=== PATIENT | female | born 1985 | race Caucasian/White ===

== ENCOUNTER 2019-07-19 21:07 | Emergency (ER) | payer SELFPAY ==
[2019-07-19 21:24] VITALS: BP 118/75; PULSE 72
--- NOTE | 2019-07-19 22:28 | EDM.PDOC ---
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 About 8:00 this evening the patient went to the bathroom passed some tissue that she thought was a fetus. Pregnancies been uncomplicated thus far. She has not been feeling ill or sick and had no other complaints. Patient still smokes. No prior miscarriages in the past. She is uncertain of her blood type. Patient has established with Dr. Ogden as her OB. - Related Data Allergies Allergy/AdvReac Type Severity Reaction Status Date / Time No Known Allergies Allergy Verified 07/19/19 21:18 Home Meds: Home Meds . [No Known Home Meds] 07/19/19 [History] Past Medical History - Past Health History Medical/Surgical History: Denies Medical/Surgical History - Infectious Disease History Infectious Disease History: Reports: Chicken Pox Social & Family History - Family History Family Medical History: Noncontributory - Tobacco Use Smoking Status *Q: Unknown Ever Smoked ED ROS GENERAL - Review of Systems Review Of Systems: See Below Constitutional: Reports: No Symptoms Respiratory: Reports: No Symptoms Cardiovascular: Reports: No Symptoms Endocrine: Reports: No Symptoms GI/Abdominal: Denies: Constipation, Diarrhea, Nausea, Vomiting : Reports: No Symptoms Musculoskeletal: Reports: No Symptoms Skin: Reports: No Symptoms Neurological: Reports: No Symptoms ED EXAM - Physical Exam Exam: See Below Exam Limited By: No Limitations General Appearance: Alert, No Apparent Distress Head: Atraumatic, Normocephalic Neck: Normal Inspection, Supple, Non-Tender, Full Range of Motion. No: Lymphadenopathy (L), Lymphadenopathy (R) Respiratory/Chest: No Respiratory Distress, Lungs Clear, Normal Breath Sounds Cardiovascular: Regular Rate, Rhythm, No Edema, No Murmur GI/Abdominal Exam: Normal Bowel Sounds, Soft, Non-Tender (Female) Exam: Normal Bimanual Exam, Normal External Exam, Vaginal Bleeding ( Small amount), Other (Small amount of blood coming from the cervical os with small amounts of clot no tissue seen). No: Adnexal Tenderness, Enlarged Uterus , Products of Conception Back Exam: Normal Inspection. No: CVA Tenderness (L), CVA Tenderness (R) Extremities: Normal Inspection, No Pedal Edema Skin Exam: Warm, Dry, Intact Course - Vital Signs Last Recorded V/S: Last Vital Signs Temp 36.7 C 07/19/19 21:21 Pulse 72 07/19/19 21:21 Resp 18 07/19/19 21:21 BP 118/75 07/19/19 21:21 Pulse Ox 100 07/19/19 21:21 - Orders/Labs/Meds Orders: Active Orders 24 hr Category Date Time Status PATIENT RETYPE [BBK] Routine Lab 07/19/19 23:20 Ordered Labs: Laboratory Tests 07/19/19 07/19/19 07/19/19 Range/Units 22:30 22:40 22:40 WBC 7.32 (3.98-10.04) K/mm3 RBC 4.08 (3.98-5.22) M/mm3 Hgb 12.2 (11.2-15.7) gm/L Hct 36.8 (34.1-44.9) % MCV 90.2 (79.4-94.8) fl MCH 29.9 (25.6-32.2) pg MCHC 33.2 (32.2-35.5) g/dl RDW Std Deviation 40.6 (36.4-46.3) fL Plt Count 268 (182-369) K/mm3 MPV 9.6 (9.4-12.3) fl Neutrophils % (Manual) 63 H (40-60) % Band Neutrophils % 0 (0-10) % Lymphocytes % (Manual) 29 (20-40) % Atypical Lymphs % 0 % Monocytes % (Manual) 7 (2-10) % Eosinophils % (Manual) 1 (0.7-5.8) % Basophils % (Manual) 0 L (0.1-1.2) Platelet Estimate Adequate Plt Morphology Comment Normal RBC Morph Comment Normal Sodium 141 (136-145) mEq/L Potassium 3.8 (3.5-5.1) mEq/L Chloride 107 (98-107) mEq/L Carbon Dioxide 27 (21-32) mEq/L Anion Gap 10.8 (5-15) BUN 11 (7-18) mg/dL Creatinine 0.8 (0.55-1.02) mg/dL Est Cr Clr Drug Dosing 111.79 mL/min Estimated GFR (MDRD) > 60 (>60) mL/min BUN/Creatinine Ratio 13.8 L (14-18) Glucose 86 (74-106) mg/dL Calcium 9.1 (8.5-10.1) mg/dL Total Bilirubin 0.3 (0.2-1.0) mg/dL AST 17 (15-37) U/L ALT 17 (14-59) U/L Alkaline Phosphatase 47 (46-116) U/L Total Protein 6.7 (6.4-8.2) g/dl Albumin 3.4 (3.4-5.0) g/dl Globulin 3.3 gm/dL Albumin/Globulin Ratio 1.0 (1-2) HCG, Quant mIU/mL Urine Color Yellow (Yellow) Urine Appearance Clear (Clear) Urine pH 7.5 (5.0-8.0) Ur Specific [place] 1.020 (1.005-1.030) Urine Protein Negative (Negative) Urine Glucose (UA) Negative (Negative) Urine Ketones Negative (Negative) Urine Occult Blood 3+ H (Negative) Urine Nitrite Negative (Negative) Urine Bilirubin Negative (Negative) Urine Urobilinogen 1.0 (0.2-1.0) Ur Leukocyte Esterase Negative (Negative) Urine RBC 5-10 H (0-5) /hpf Urine WBC Not seen (0-5) /hpf Ur Epithelial Cells 0-5 (0-5) /hpf Amorphous Sediment Many H (NOT SEEN) /hpf Urine Bacteria Rare (FEW) /hpf Urine Mucus Rare (FEW) /hpf Blood Type Gel Antibody Screen 07/19/19 07/19/19 Range/Units 22:40 22:40 WBC (3.98-10.04) K/mm3 RBC (3.98-5.22) M/mm3 Hgb (11.2-15.7) gm/L Hct (34.1-44.9) % MCV (79.4-94.8) fl MCH (25.6-32.2) pg MCHC (32.2-35.5) g/dl RDW Std Deviation (36.4-46.3) fL Plt Count (182-369) K/mm3 MPV (9.4-12.3) fl Neutrophils % (Manual) (40-60) % Band Neutrophils % (0-10) % Lymphocytes % (Manual) (20-40) % Atypical Lymphs % % Monocytes % (Manual) (2-10) % Eosinophils % (Manual) (0.7-5.8) % Basophils % (Manual) (0.1-1.2) Platelet Estimate Plt Morphology Comment RBC Morph Comment Sodium (136-145) mEq/L Potassium (3.5-5.1) mEq/L Chloride (98-107) mEq/L Carbon Dioxide (21-32) mEq/L Anion Gap (5-15) BUN (7-18) mg/dL Creatinine (0.55-1.02) mg/dL Est Cr Clr Drug Dosing mL/min Estimated GFR (MDRD) (>60) mL/min BUN/Creatinine Ratio (14-18) Glucose (74-106) mg/dL Calcium (8.5-10.1) mg/dL Total Bilirubin (0.2-1.0) mg/dL AST (15-37) U/L ALT (14-59) U/L Alkaline Phosphatase (46-116) U/L Total Protein (6.4-8.2) g/dl Albumin (3.4-5.0) g/dl Globulin gm/dL Albumin/Globulin Ratio (1-2) HCG, Quant 2011.0 mIU/mL Urine Color (Yellow) Urine Appearance (Clear) Urine pH (5.0-8.0) Ur Specific [place] (1.005-1.030) Urine Protein (Negative) Urine Glucose (UA) (Negative) Urine Ketones (Negative) Urine Occult Blood (Negative) Urine Nitrite (Negative) Urine Bilirubin (Negative) Urine Urobilinogen (0.2-1.0) Ur Leukocyte Esterase (Negative) Urine RBC (0-5) /hpf Urine WBC (0-5) /hpf Ur Epithelial Cells (0-5) /hpf Amorphous Sediment (NOT SEEN) /hpf Urine Bacteria (FEW) /hpf Urine Mucus (FEW) /hpf Blood Type A POSITIVE Gel Antibody Screen Negative - Re-Assessments/Exams Free Text/Narrative Re-Assessment/Exam: 07/20/19 00:54 Patient was observed for some time in the emergency room no heavy bleeding or cramping occurred. No passage of any more tissue. Labs are obtained her blood type is a positive quantitative hCG was 2011.0 very low for 15 weeks Departure - Departure Time of Disposition: 00:55 Disposition: Home, Self-Care 01 Clinical Impression: Incomplete - Discharge Information Referrals: Stephenie Ogden MD [Primary Care Provider] - Forms: ED Department Discharge Additional Instructions: Return to the emergency room with any questions problems or worsening symptoms. Return if bleeding gets to saturating more than 2 pads an hour for 4 straight hours. Follow-up with Dr. Jarquin as scheduled on . - My Orders Last 24 Hours: My Active Orders 07/19/19 23:20 PATIENT RETYPE [BBK] Routine - Assessment/Plan Last 24 Hours: My Active Orders 07/19/19 23:20 PATIENT RETYPE [BBK] Routine
== END 2019-07-20 01:03 | disposition home or self-care (01) ==
LOC: JD.ED 21:07
DX: O03.4 Incomplete spontaneous abortion without complication (principal)
CPT/HCPCS: 36415; 80053; 81001; 84702; 85007; 85027; 86850; 86900; 86901; 99282; 99284

== ENCOUNTER 2019-09-03 22:03 | Observation (INO) | payer SELFPAY ==
--- NOTE | 2019-09-03 22:40 | EDM.PDOC ---
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 She had a miscarriage on July 20. She states of the ultrasound after work did not show any acute problems or retained placental products. However since that time she is been bleeding on and off. About every 3-4 day she'll have some very heavy bleeding and clots. Over the last week and a half it seems to be happening every other day. She is called her OB doctor who told her that she thought she was getting weaker pales that she needs to be evaluated so she comes to the ER. Apparently her boyfriend fela told her that she looked pale and so that was why she came. She denies being particularly weak or fatigued and she's been holding down her job. She has been eating and drinking okay. She denies any dizziness when she stands up she denies any fainting spells. She denies any abdominal pain with the vaginal bleeding. No fever no chills no cough no congestion. - Related Data Allergies Allergy/AdvReac Type Severity Reaction Status Date / Time No Known Allergies Allergy Verified 09/03/19 22:13 Home Meds: Home Meds . 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 - Infectious Disease History Infectious Disease History: Reports: Chicken Pox Social & Family History - Family History Family Medical History: Noncontributory - Tobacco Use Smoking Status *Q: Current Every Day Smoker Years of Tobacco use: 20 Packs/Tins Daily: 0.5 - Caffeine Use Caffeine Use: Reports: Soda - Recreational Drug Use Recreational Drug Use: Yes Recreational Drug Type: Reports: Marijuana/Hashish Recreational Drug Use Frequency: Weekly ED ROS GENERAL - Review of Systems Review Of Systems: See Below Constitutional: Denies: Fever, Chills, Malaise, Weakness, Fatigue HEENT: Reports: No Symptoms Respiratory: Reports: No Symptoms Cardiovascular: Reports: No Symptoms Endocrine: Reports: No Symptoms GI/Abdominal: Reports: No Symptoms : Reports: Other (Vaginal bleeding) Musculoskeletal: Reports: No Symptoms Skin: Reports: Pallor Neurological: Reports: No Symptoms Psychiatric: Reports: No Symptoms Hematologic/Lymphatic: Reports: No Symptoms ED EXAM, GENERAL - Physical Exam Exam: See Below Exam Limited By: No Limitations General Appearance: Alert, WD/WN, No Apparent Distress Eye Exam: Bilateral Eye: Normal Inspection, Other (She has pale conjunctiva noted) Ears: Normal External Exam Nose: Normal Inspection Throat/Mouth: Normal Inspection, Normal Lips, Normal Voice, No Airway Compromise Head: Normocephalic Neck: Supple Respiratory/Chest: No Respiratory Distress, Lungs Clear, Normal Breath Sounds Cardiovascular: Regular Rate, Rhythm, No Murmur. No: Tachycardia GI/Abdominal: Soft, Non-Tender Back Exam: Full Range of Motion Extremities: Normal Inspection, Normal Range of Motion Neurological: Alert, Oriented Psychiatric: Normal Affect, Normal Mood Skin Exam: Warm, Dry, Pallor, Other (Overall she does appear to be pale and the nailbeds and her lips and her conjunctiva of her eyes) Course - Vital Signs Last Recorded V/S: Last Vital Signs Temp 97.2 F 09/03/19 22:10 Pulse 92 09/03/19 22:10 Resp 18 09/03/19 22:10 BP 117/83 09/03/19 22:10 Pulse Ox 100 09/03/19 22:10 - Orders/Labs/Meds Orders: Active Orders 24 hr Category Date Time Status Pelvis Non OB Comp [US] Stat Exams 09/04/19 12:00 Taken Ibuprofen [Motrin] Med 09/04/19 02:29 Once 600 mg PO ONETIME ONE miSOPROStol [Cytotec] Med 09/04/19 02:29 Once 400 mcg PO ONETIME ONE Medication Orders Misoprostol (Cytotec) 400 mcg PO ONETIME ONE Stop: 09/04/19 02:30 Labs: Laboratory Tests 09/03/19 09/03/19 Range/Units 22:43 22:43 WBC 9.56 (3.98-10.04) K/mm3 RBC 2.52 L (3.98-5.22) M/mm3 Hgb 7.3 L* D (11.2-15.7) gm/dl Hct 22.9 L (34.1-44.9) % MCV 90.9 (79.4-94.8) fl MCH 29.0 (25.6-32.2) pg MCHC 31.9 L (32.2-35.5) g/dl RDW Std Deviation 38.2 (36.4-46.3) fL Plt Count 294 (182-369) K/mm3 MPV 8.4 L (9.4-12.3) fl Neut % (Auto) 76.1 H (34.0-71.1) % Lymph % (Auto) 15.3 L (19.3-51.7) % [place] % (Auto) 8.1 (4.7-12.5) % Eos % (Auto) 0.2 L (0.7-5.8) Baso % (Auto) 0.1 (0.1-1.2) % Neut # (Auto) 7.28 H (1.56-6.13) K/mm3 Lymph # (Auto) 1.46 (1.18-3.74) K/mm3 [place] # (Auto) 0.77 H (0.24-0.36) K/mm3 Eos # (Auto) 0.02 L (0.04-0.36) K/mm3 Baso # (Auto) 0.01 (0.01-0.08) K/mm3 Manual Slide Review Abnormal smear Sodium 141 (136-145) mEq/L Potassium 3.5 (3.5-5.1) mEq/L Chloride 107 (98-107) mEq/L Carbon Dioxide 26 (21-32) mEq/L Anion Gap 11.5 (5-15) BUN 8 (7-18) mg/dL Creatinine 0.7 (0.55-1.02) mg/dL Est Cr Clr Drug Dosing 106.41 mL/min Estimated GFR (MDRD) > 60 (>60) mL/min BUN/Creatinine Ratio 11.4 L (14-18) Glucose 113 H (74-106) mg/dL Calcium 8.0 L (8.5-10.1) mg/dL Total Bilirubin 0.2 (0.2-1.0) mg/dL AST 10 L (15-37) U/L ALT 13 L (14-59) U/L Alkaline Phosphatase 47 (46-116) U/L Total Protein 5.5 L (6.4-8.2) g/dl Albumin 2.7 L (3.4-5.0) g/dl Globulin 2.8 gm/dL Albumin/Globulin Ratio 1.0 (1-2) Meds: Medications Generic Name Dose Route Start Last Admin Trade Name Vicenteq PRN Reason Stop Dose Admin Misoprostol 400 mcg 09/04/19 02:29 Cytotec PO 09/04/19 02:30 ONETIME ONE Discontinued Medications Generic Name Dose Route Start Last Admin Trade Name Freq PRN Reason Stop Dose Admin Estrogens Conjugated 1.25 mg 09/04/19 00:02 09/04/19 00:10 Premarin PO 09/04/19 00:03 Not Given ONETIME ONE - Radiology Interpretation Free Text/Narrative:: The ultrasound showed everything was normal except she had small amount of retained products in the uterus - Re-Assessments/Exams Free Text/Narrative Re-Assessment/Exam: 09/03/19 23:[address] Rivera regarding the low hemoglobin from the continual vaginal bleeding. He suggested that we put her on some Premarin 1.25 mg a day for the next 7 days and put her on some iron sulfate 325 mg twice a day. When I talked about the low white count since she is asymptomatic he did not feel at this point that she needed a blood transfusion but hopefully the Premarin and the iron pills will #1 stop the bleeding and number to build up her blood count. If for some reason she starts having dizziness or fainting spells then she will need to have a blood transfusion. We are going to get an ultrasound of her uterus to just to make sure it is still looking normal and there is no retained placental products. 09/04/19 02:[address] Rivera regarding the retained products in the uterus and he instructed me to give her 400 g of Cytotec as well as some ibuprofen and he is going to put her into OB for observation to make sure the products are expelled and if not she might have to have a D&C. He is concerned about her low hemoglobin and doing the Cytotec and then sending her home since it might not be effective. Departure - Departure Time of Disposition: 02:31 Disposition: Admitted As Inpatient 66 Condition: Fair Clinical Impression: Retained products of conception, Severe anemia, Vaginal bleeding, History of miscarriage - Discharge Information *PRESCRIPTION DRUG MONITORING PROGRAM REVIEWED*: Not Applicable *COPY OF PRESCRIPTION DRUG MONITORING REPORT IN PATIENT FORREST: Not Applicable ED Communication - ED Communication Date/Time Date: 09/04/19 Time Called: 02:33 - Discussed Case With (1) Discussed Case With (1): Admitting Provider Person/s Notified (1): Fitz Rivera (He agrees to admit the patient for further evaluation and treatment) - My Orders Last 24 Hours: My Active Orders 09/04/19 02:29 Ibuprofen [Motrin] 600 mg PO ONETIME ONE miSOPROStol [Cytotec] 400 mcg PO ONETIME ONE 09/04/19 12:00 Pelvis Non OB Comp [US] Stat - Assessment/Plan Last 24 Hours: My Active Orders 09/04/19 02:29 Ibuprofen [Motrin] 600 mg PO ONETIME ONE miSOPROStol [Cytotec] 400 mcg PO ONETIME ONE 09/04/19 12:00 Pelvis Non OB Comp [US] Stat
[2019-09-04] MEDS ORDERED: Misoprostol 100 MCG Tab PO ONE (02:29)
[2019-09-04] MEDS ORDERED: Ibuprofen 600 MG Tab PO ONE (02:29)
[2019-09-04] MEDS ORDERED: Sodium Chloride 0.9% 10 ML Syringe FLUSH PRN (03:06)
--- NOTE | 2019-09-04 04:12 | PCM.PREANE ---
Preanesthetic Assessment - Anesthesia/Transfusion/Family Hx Anesthesia History: Prior Anesthesia Without Reaction Family History of Anesthesia Reaction: No Transfusion History: No Prior Transfusion(s) Intubation History: Unknown - Review of Systems General: No Symptoms, Chills Pulmonary: No Symptoms (Smoker: 1/4 pk per day times 15 yrs. Marijuana QOD.) Cardiovascular: No Symptoms Gastrointestinal: No Symptoms (GERD with / no symptoms for one month) Neurological: No Symptoms Other: Reports: None, Easy Bruising - Physical Assessment NPO Status Date: 09/03/19 NPO Status Time: 21:30 Vital Signs: Last Vital Signs Temp 36.5 C 09/04/19 03:28 Pulse 72 09/04/19 03:28 Resp 14 09/04/19 03:28 BP 123/93 H 09/04/19 03:28 Pulse Ox 97 09/04/19 03:28 Height: 1.7 m Weight: 58.967 kg ASA Class: 2E Mental Status: Alert & Oriented x3 Airway Class: Mallampati = 2 Dentition: Reports: Normal Dentition, Caries Thyro-Mental Finger Breadths: 3 Mouth Opening Finger Breadths: 3 ROM/Head Extension: Full Lungs: Clear to Auscultation, Normal Respiratory Effort Cardiovascular: Regular Rate, Regular Rhythm, No Murmurs - Lab Values: Laboratory Last Values WBC 9.56 K/mm3 (3.98-10.04) 09/03/19 22:43 RBC 2.52 M/mm3 (3.98-5.22) L 09/03/19 22:43 Hgb 7.3 gm/dl (11.2-15.7) L* D 09/03/19 22:43 Hct 22.9 % (34.1-44.9) L 09/03/19 22:43 MCV 90.9 fl (79.4-94.8) 09/03/19 22:43 MCH 29.0 pg (25.6-32.2) 09/03/19 22:43 MCHC 31.9 g/dl (32.2-35.5) L 09/03/19 22:43 RDW Std Deviation 38.2 fL (36.4-46.3) 09/03/19 22:43 Plt Count 294 K/mm3 (182-369) 09/03/19 22:43 MPV 8.4 fl (9.4-12.3) L 09/03/19 22:43 Neut % (Auto) 76.1 % (34.0-71.1) H 09/03/19 22:43 Lymph % (Auto) 15.3 % (19.3-51.7) L 09/03/19 22:43 [place] % (Auto) 8.1 % (4.7-12.5) 09/03/19 22:43 Eos % (Auto) 0.2 (0.7-5.8) L 09/03/19 22:43 Baso % (Auto) 0.1 % (0.1-1.2) 09/03/19 22:43 Neut # (Auto) 7.28 K/mm3 (1.56-6.13) H 09/03/19 22:43 Lymph # (Auto) 1.46 K/mm3 (1.18-3.74) 09/03/19 22:43 [place] # (Auto) 0.77 K/mm3 (0.24-0.36) H 09/03/19 22:43 Eos # (Auto) 0.02 K/mm3 (0.04-0.36) L 09/03/19 22:43 Baso # (Auto) 0.01 K/mm3 (0.01-0.08) 09/03/19 22:43 Manual Slide Review Abnormal smear 09/03/19 22:43 Sodium 141 mEq/L (136-145) 09/03/19 22:43 Potassium 3.5 mEq/L (3.5-5.1) 09/03/19 22:43 Chloride 107 mEq/L (98-107) 09/03/19 22:43 Carbon Dioxide 26 mEq/L (21-32) 09/03/19 22:43 Anion Gap 11.5 (5-15) 09/03/19 22:43 BUN 8 mg/dL (7-18) 09/03/19 22:43 Creatinine 0.7 mg/dL (0.55-1.02) 09/03/19 22:43 Est Cr Clr Drug Dosing 106.41 mL/min 09/03/19 22:43 Estimated GFR (MDRD) > 60 mL/min (>60) 09/03/19 22:43 BUN/Creatinine Ratio 11.4 (14-18) L 09/03/19 22:43 Glucose 113 mg/dL (74-106) H 09/03/19 22:43 Calcium 8.0 mg/dL (8.5-10.1) L 09/03/19 22:43 Total Bilirubin 0.2 mg/dL (0.2-1.0) 09/03/19 22:43 AST 10 U/L (15-37) L 09/03/19 22:43 ALT 13 U/L (14-59) L 09/03/19 22:43 Alkaline Phosphatase 47 U/L (46-116) 09/03/19 22:43 Total Protein 5.5 g/dl (6.4-8.2) L 09/03/19 22:43 Albumin 2.7 g/dl (3.4-5.0) L 09/03/19 22:43 Globulin 2.8 gm/dL 09/03/19 22:43 Albumin/Globulin Ratio 1.0 (1-2) 09/03/19 22:43 Above labs reviewed and noted and within acceptable ranges to proceed with D&C if warranted. 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 [No Known Home Meds] 07/19/19 [History] - CURRENT (IN HOUSE) MEDS Current Meds: Current Medications Ibuprofen (Motrin) 600 mg PO Q4HR PRN PRN Reason: Pain Misoprostol (Cytotec) 400 mcg PO BID NATALEE Sodium Chloride (Saline Flush) 10 ml FLUSH ASDIRECTED PRN PRN Reason: Keep Vein Open Discontinued Medications Estrogens Conjugated (Premarin) 1.25 mg PO ONETIME ONE Stop: 09/04/19 00:03 Last Admin: 09/04/19 00:10 Dose: Not Given Ibuprofen (Motrin) 600 mg PO ONETIME ONE Stop: 09/04/19 02:30 Last Admin: 09/04/19 02:40 Dose: 600 mg Misoprostol (Cytotec) 400 mcg PO ONETIME ONE Stop: 09/04/19 02:30 Last Admin: 09/04/19 02:39 Dose: 400 mcg
[2019-09-04] MEDS ORDERED: Sodium Chloride 0.9% 1,000 ML IV SCH (04:30)
[2019-09-04] MEDS ORDERED: Ibuprofen 600 MG Tab PO PRN (06:45)
[2019-09-04] MEDS ORDERED: Misoprostol 200 MCG Tab PO SCH (06:45)
[2019-09-04] MEDS ORDERED: Lactated Ringers 1,000 ML IV ONE (08:27)
--- NOTE | 2019-09-04 08:42 | PCM.LDHP ---
L&D History of Present Illness - General Date of Service: 09/04/19 Admit Problem/Dx: Patient Status Order with Admit Dx/Problem 09/04/19 02:46 Patient Status [ADT] Routine 09/04/19 03:06 Patient Status [ADT] Routine Admission Diagnosis/Problem Admission Diagnosis/Problem Retained products of conception 09/04/19 08:34 Randal a 33-year-old 4 para 3013 white female who was admitted through the emergency room after evaluation for bleeding after miscarriage. She reports that on 07/19/2019 she passed tissue had bleeding and some cramping and was felt to have completely miscarried. Source of Information: Patient History Limitations: Reports: No Limitations - History of Present Illness Introduction:: Is a 33-year-old 4 para 3013 white female who was admitted through the emergency room after evaluation for bleeding after miscarriage. She reports that on 07/19/2019 she passed tissue had bleeding and some cramping and was felt to have completely miscarried. She is evaluated at [facility] with an ultrasound wouldn't after which she was told that the uterus had completely evacuated itself. She however continued to have bleeding. It was intermittent in nature and at times fairly aggressive. She actually came into the emergency room upon recommendation of her boyfriend because of her appearing very pale. In the emergency room patient was evaluated with hemoglobin which was found to be 7.3 with hematocrit of 22.9 and white count of 9.56 and platelets of 294, 000. Her MCV was 90.9. The cuff is metabolic profile was relatively unremarkable to exception of decreased AST, calcium, BUN/creatinine ratio. Total protein was also low. The patient underwent ultrasound and the ultrasound showed a 14 mm thickening into the endometrial cavity most probably consistent with retained products of conception. Is a left ovarian cyst of 3.3 cm but benign in appearance. The ultrasound otherwise was unremarkable. Her initial hospital course was that of observation with Cytotec 400 g being given oral to facilitate passage of the retained products. She did pass some clots but did not pass any form tissue. Repeat ultrasound showed essentially unchanged status. Patient is offered a second dose of Cytotec or the option of dilation suction curettage. She at this time is given the risks, benefits, limitations and follow-up of suction curettage versus Cytotec and wishes to proceed with the dilation and suction curettage. Consent is signed. 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 She had 3 vaginal deliveries 1 son and 2 daughters all older in the 15-8 year range. All were vaginal deliveries in the 7 pound range. She is sexually active. No control. Patient has no plans to achieve conception at this point. She is considering Mirena IUD. She denied any STI's. Allergies: None Medications: None Past medical history: 1. 3 2. Spontaneous miscarriage 1 July 19, 2019 Past surgical history: 1. [place] teeth extraction 2. Left knee surgery involving her knee cap Family history: Mother and father alive and in generally good health. She has 2 younger brothers. She had one brother from cocaine overdose. Grandparents are all . Grandfather is the cause of unknown. One grandmother with dementia and stroke. The other grandmother with some type of bone cancer possibly originating in the lungs. No anesthesia, bleeding, blood clotting problems noted in the family. No problems also reported. Social history: Patient is single. She does not use any significant muscle L call. She does smoke one third pack cigarettes per day. She uses occasional marijuana. Review of systems: In general patient has no complaints. Main complaint is that her boyfriend feels she appeared pale. She is not having any significant anemia symptoms at this time. Skin: Negative Lungs: No infectious symptoms or shortness of breath Cardiovascular: No chest pain or exercise intolerance Breasts: No lumps, changes in size, pain, dimpling, discharge or axillary or supraclavicular concerns. GI: Negative : Bleeding as described in the history of present illness. Musculoskeletal: Negative Neurological: Negative In general the patient is well-developed, well-nourished, pleasant female of stated age in no acute distress. Skin is warm dry without lesions. HEENT, neck and back within normal limits. Lungs are clear with good breath sounds in all lung sosa. Cardiovascular exam shows regular and rhythm without murmurs. Breast exam deferred Abdomen is flat, soft, nontender without masses or organomegaly. Positive bowel sounds are noted. No inguinal lymphadenopathy or hernias are noted. Genital performed in the ER and not repeated at this time. Will be done under anesthesia. Extremities and neurological exam are grossly within normal limits. - Related Data Allergies/Adverse Reactions: Allergies Allergy/AdvReac Type Severity Reaction Status Date / Time No Known Allergies Allergy Verified 09/03/19 22:13 Home Medications: Home Meds . [No Known Home Meds] 07/19/19 [History] Past Medical History - Past Health History Medical/Surgical History: Denies Medical/Surgical History PUMP SERVICER History: Reports: Spontaneous - Infectious Disease History Infectious Disease History: Reports: Chicken Pox Social & Family History - Family History Family Medical History: Noncontributory - Tobacco Use Smoking Status *Q: Current Every Day Smoker Years of Tobacco use: 20 Packs/Tins Daily: 0.5 - Caffeine Use Caffeine Use: Reports: Soda - Recreational Drug Use Recreational Drug Use: Yes Recreational Drug Type: Reports: Marijuana/Hashish Recreational Drug Use Frequency: Weekly H&P Review of Systems - Review of Systems: Review Of Systems: See Below L&D Exam - Exam Exam: See Below - Vital Signs Vital Signs: Last Vital Signs Temp 36.5 C 09/04/19 03:28 Pulse 72 09/04/19 03:28 Resp 14 09/04/19 03:28 BP 123/93 H 09/04/19 03:28 Pulse Ox 97 09/04/19 03:28 Weight: 58.967 kg - Patient Data Lab Results Last 24 hrs: Laboratory Results - last 24 hr 09/03/19 09/03/19 09/04/19 Range/Units 22:43 22:43 06:00 WBC 9.56 9.37 (3.98-10.04) K/mm3 RBC 2.52 L 2.49 L (3.98-5.22) M/mm3 Hgb 7.3 L* D 7.1 L* (11.2-15.7) gm/dl Hct 22.9 L 22.7 L (34.1-44.9) % MCV 90.9 91.2 (79.4-94.8) fl MCH 29.0 28.5 (25.6-32.2) pg MCHC 31.9 L 31.3 L (32.2-35.5) g/dl RDW Std Deviation 38.2 38.8 (36.4-46.3) fL Plt Count 294 291 (182-369) K/mm3 MPV 8.4 L 8.9 L (9.4-12.3) fl Neut % (Auto) 76.1 H 76.5 H (34.0-71.1) % Lymph % (Auto) 15.3 L 15.0 L (19.3-51.7) % Dodge % (Auto) 8.1 7.8 (4.7-12.5) % Eos % (Auto) 0.2 L 0.2 L (0.7-5.8) Baso % (Auto) 0.1 0.1 (0.1-1.2) % Neut # (Auto) 7.28 H 7.16 H (1.56-6.13) K/mm3 Lymph # (Auto) 1.46 1.41 (1.18-3.74) K/mm3 Dodge # (Auto) 0.77 H 0.73 H (0.24-0.36) K/mm3 Eos # (Auto) 0.02 L 0.02 L (0.04-0.36) K/mm3 Baso # (Auto) 0.01 0.01 (0.01-0.08) K/mm3 Manual Slide Review Abnormal smear Abnormal smear Sodium 141 (136-145) mEq/L Potassium 3.5 (3.5-5.1) mEq/L Chloride 107 (98-107) mEq/L Carbon Dioxide 26 (21-32) mEq/L Anion Gap 11.5 (5-15) BUN 8 (7-18) mg/dL Creatinine 0.7 (0.55-1.02) mg/dL Est Cr Clr Drug Dosing 106.41 mL/min Estimated GFR (MDRD) > 60 (>60) mL/min BUN/Creatinine Ratio 11.4 L (14-18) Glucose 113 H (74-106) mg/dL Calcium 8.0 L (8.5-10.1) mg/dL Total Bilirubin 0.2 (0.2-1.0) mg/dL AST 10 L (15-37) U/L ALT 13 L (14-59) U/L Alkaline Phosphatase 47 (46-116) U/L Total Protein 5.5 L (6.4-8.2) g/dl Albumin 2.7 L (3.4-5.0) g/dl Globulin 2.8 gm/dL Albumin/Globulin Ratio 1.0 (1-2) Result Diagrams: 09/04/19 06:00 09/03/19 22:43 Problem List Initiated/Reviewed/Updated: Yes Orders Last 24hrs: Active Orders 24 hr Category Date Time Status Patient Status [ADT] Routine ADT 09/04/19 03:06 Active Telemetry Monitoring [Cardiac Monitoring] [RC] . Care 09/04/19 03:20 Active DIRECTED Up ad Rosa [RC] ASDIRECTED Care 09/04/19 03:08 Active Vital Signs [RC] PER UNIT ROUTINE Care 09/04/19 03:06 Active Clear Liquid Diet [DIET] Diet 09/04/19 Breakfast Active Pelvis Non OB Comp [US] Stat Exams 09/04/19 12:00 Taken Transvaginal Non OB [US] Stat Exams 09/04/19 06:31 Taken TYPE AND SCREEN [BBK] Stat Lab 09/04/19 08:27 Ordered Ibuprofen [Motrin] Med 09/04/19 06:45 Active 600 mg PO Q4HR PRN Lactated Ringers [Ringers, Lactated] 1,000 ml Med 09/04/19 08:27 Active IV .BOLUS Sodium Chloride 0.9% [Normal Saline] 1,000 ml Med 09/04/19 04:30 Active IV ASDIRECTED Sodium Chloride 0.9% [Saline Flush] Med 09/04/19 03:06 Active 10 ml FLUSH ASDIRECTED PRN miSOPROStol [Cytotec] Med 09/04/19 06:45 Active 400 mcg PO BID Saline Lock Insert [OM.PC] Routine Oth 09/04/19 03:06 Ordered Schedule Procedure [COMM] Urgent Oth 09/04/19 08:28 Ordered Resuscitation Status Routine Resus Stat 09/04/19 03:06 Ordered Medication Orders Sodium Chloride (Normal Saline) 1,000 mls @ 125 mls/hr IV ASDIRECTED NATALEE Last Admin: 09/04/19 04:28 Dose: 125 mls/hr Lactated Ringer's (Ringers, Lactated) 1,000 mls @ 999 mls/hr IV .BOLUS ONE Stop: 09/04/19 09:27 Ibuprofen (Motrin) 600 mg PO Q4HR PRN PRN Reason: Pain Misoprostol (Cytotec) 400 mcg PO BID NATALEE Sodium Chloride (Saline Flush) 10 ml FLUSH ASDIRECTED PRN PRN Reason: Keep Vein Open Assessment/Plan Comment:: 1. Chronic anemia to hemoglobin of 7.1 on reevaluation this a.m. 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 Thereafter 2. Unsuccessful Cytotec induction of miscarriage. 3.Unknown type and Rh. This will be performed. 4. Risk factors include anemia, history of smoking, history of marijuana use 5. Patient not intending to try to conceive at this time. Contemplating Mirena IUD. Plan: 1. Options of therapy including repeat doing another dose of Cytotec at 600 mg by mouth versus dilation and suction curettage are discussed in detail patient. She prefers to proceed with dilation and suction curettage. Consent is signed. 2. Obtain type and RhRhoGAM if she-negative 3. Ancef 2 g IV preop for infection prophylaxis. This because of the retained products of conception been in the uterus for a long period of time
[2019-09-04] MEDS ORDERED: Ondansetron 4 MG/2 ML SDV ONE (08:55)
[2019-09-04] MEDS ORDERED: Lactated Ringers 1,000 ML ONE (08:55)
[2019-09-04] MEDS ORDERED: Ketorolac 30 MG/ML SDV ONE (08:55)
[2019-09-04] MEDS ORDERED: Lidocaine 1% 6 ML ONE (08:55)
[2019-09-04] MEDS ORDERED: Dexamethasone 4 MG/ML 5 ML MDV ONE (08:55)
[2019-09-04] MEDS ORDERED: Propofol 200 MG/20 ML SDV ONE (08:56)
[2019-09-04] MEDS ORDERED: fentaNYL 100 MCG/2 ML SDV ONE (08:56)
[2019-09-04] MEDS ORDERED: Midazolam 1 MG/ML 2 ML SDV ONE (08:56)
[2019-09-04] MEDS ORDERED: Phenylephrine/Normal Saline 100 MCG/ML 10 ML Syringe ONE (09:01)
[2019-09-04] MEDS ORDERED: ePHEDrine/Normal Saline 25 MG/5 ML Syringe ONE (09:01)
[2019-09-04] MEDS ORDERED: fentaNYL 100 MCG/2 ML SDV IVPUSH PRN (09:22)
[2019-09-04] MEDS ORDERED: diphenhydrAMINE 50 MG/ML SDV IVPUSH PRN (09:22)
[2019-09-04] MEDS ORDERED: Ondansetron 4 MG/2 ML SDV IVPUSH PRN ×2 (09:22→09:39)
[2019-09-04] MEDS ORDERED: ePHEDrine 50 MG/ML SDV IVPUSH PRN (09:22)
[2019-09-04] MEDS ORDERED: HYDROmorphone 0.5 MG/0.5 ML Syringe IVPUSH PRN (09:22)
[2019-09-04] MEDS ORDERED: Phenylephrine 1 MG in Sodium Chloride 0.9% 10 ML IV SCH (09:30)
[2019-09-04] MEDS ORDERED: Methylergonovine 0.2 MG/1 ML Amp ONE (09:32)
--- NOTE | 2019-09-04 09:44 | PCM.OPNOTE ---
- General Post-Op/Procedure Note Date of Surgery/Procedure: 09/04/19 Operative Procedure(s): Dilation and suction curettage Findings: Uterus was found to be anteverted, mildly enlarged to approximately 7 weeks size. Adnexa within normal limits. Cervix was mildly dilated to possibly 1 cm. Cervix allowed up to 7 mm dilation without problems. The uterus sounded to 9 cm. Tissue removed from the endometrial cavity was consistent with products of conception. Pre Op Diagnosis: 1. Retained products of conception. 2. Chronic blood loss anemia Post-Op Diagnosis: Same Anesthesia Technique: General ET Tube Primary Surgeon: Fitz Rivera Secondary Surgeon: Germán Cano Anesthesia Provider: Alexsandra Guadarrama Pathology: Endometrial curettings consistent with products of conception. Fluid Replacement, Intraop: 1,000 EBL in mLs: 50 Complications: None Condition: Good Free Text/Narrative:: Intake & Output 09/03/19 09/04/19 09/04/19 22:59 06:59 14:59 Output Total 400 Balance -400 Surgery duration: 8 minutes The patient was taken to the operating room and placed in a supine position operating table. She received 2 g of Ancef preoperatively for infection prophylaxis. After adequate general endotracheal anesthesia patient was placed in a dorsal lithotomy position. A weighted speculum was placed in the vagina. Cervix is found to be dilated to approximately 1 centimeters. Uterus was sounded to approximately 9 cm. It was found to be anterior and mid position. An 7 mm suction curette was then introduced in routine fashion the endometrial cavity was evacuated. Moderate amount tissue was obtained. Findings consistent with products of conception. A medium size sharp curet was introduced and very careful fashion the endometrial cavity was curetted. It was be clear of any further tissue. The suction curet was then reintroduced and small and blood was removed. No further tissue was removed. This point the D&C was discontinued. The single-toothed tenaculum used to stabilize the anterior lip the cervix was removed. Blood was removed from the vagina with a stick sponge and the weighted speculum was removed from the vagina. The patient was awakened from general endotracheal anesthesia. The patient was discharged from the OR in good condition. To be noted Methergine 0.2 mg was given IM intraoperatively to reduce risk of uterine bleeding.
--- NOTE | 2019-09-04 09:52 | PCM.POSTAN ---
POST ANESTHESIA ASSESSMENT - MENTAL STATUS Mental Status: Alert - VITAL SIGNS Vital Signs: Last Vital Signs Temp 97.5f 09/04/19945 Pulse 85 09/04/19945 Resp 11 09/04/19945 BP 94/51 09/04/19945 Pulse Ox 100 09/04/19945 - RESPIRATORY Respiratory Status: Respiratory Rate WNL, Airway Patent, O2 Saturation Stable, Supplemental Oxygen - CARDIOVASCULAR CV Status: Pulse Rate WNL, Blood Pressure Stable - GASTROINTESTINAL GI Status: No Symptoms - POST OP HYDRATION Hydration Status: Adequate & Stable
--- NOTE | 2019-09-04 10:13 | PCM48HPAN ---
Post Anesthesia Note - EVALUATION WITHIN 48HRS OF ANESTHETIC Vital Signs in Normal Range: Yes Patient Participated in Evaluation: Yes Respiratory Function Stable: Yes Airway Patent: Yes Cardiovascular Function Stable: Yes Hydration Status Stable: Yes Pain Control Satisfactory: Yes Nausea and Vomiting Control Satisfactory: Yes Mental Status Recovered: Yes Vital Signs: Last Vital Signs Temp 36.4 C 09/04/19 09:46 Pulse 78 09/04/19 08:09 Resp 10 L 09/04/19 10:00 BP 93/51 L 09/04/19 10:00 Pulse Ox 97 09/04/19 10:07
[2019-09-04 12:34] VITALS: BP 94/45; PULSE 59
--- NOTE | 2019-09-04 16:15 | US ---
Pelvic ultrasound: Multiple real-time images were obtained transvaginally. Comparison: Previous transabdominal pelvic ultrasound performed earlier on the same day (12:16 AM). Thickened endometrium is seen showing Doppler blood flow. Findings are felt compatible with retained products of conception. Slightly complicated cyst noted within the left ovary measuring 3.5 cm which was felt to be simple on the transabdominal scan. Minimal free fluid is seen within the cul-de-sac. Measurements: Measurements as noted on prior abdominal imaging. Impression: 1. Findings which are felt compatible with retained products of conception. 2. Complicated 3.5 cm cyst within the left ovary which is most likely hemorrhagic. Diagnostic code #5 I agree with preliminary report from [facility], finalized on 09/04/19, 9:37 AM Central Time
--- NOTE | 2019-09-04 16:15 | US ---
Pelvic ultrasound: Multiple real-time images were obtained transabdominally. Uterus is anteverted. There is an area of endometrial thickening being seen which likely represents retained products of conception as there is a small amount of Doppler blood flow seen in this area. No myometrial abnormality is seen. Left ovary shows a small 3.3 cm cyst. Right ovary is unremarkable. No free fluid is seen. Measurements: Uterus: Length 9.7 cm, AP height 5.8 cm, transverse with 7.8 cm Right ovary: 4.5 x 1.9 x 2.3 cm Left ovary: 3.8 x 3.2 with 3.5 cm Impression: 1. Findings are suspicious for retained products of conception within the endometrial cavity. 2. Small simple appearing cyst within the left ovary measuring 3.3 cm. Diagnostic code #3 I agree with preliminary report from [facility], finalized on 09/04/19, 3:19 AM Central Time
--- NOTE | 2019-09-06 20:35 | PCM.DCSUM1 ---
Discharge Summary - Hospital Course Free Text/Narrative:: Is a 33-year-old 4 para 3013 white female who was admitted through the emergency room after evaluation for bleeding after miscarriage. She reports that on 07/19/2019 she passed tissue had bleeding and some cramping and was felt to have completely miscarried. She is evaluated at [facility] with an ultrasound wouldn't after which she was told that the uterus had completely evacuated itself. She however continued to have bleeding. It was intermittent in nature and at times fairly aggressive. She actually came into the emergency room upon recommendation of her boyfriend because of her appearing very pale. The patient underwent a single course of Cytotec 400 g orally to facilitate evacuation of the products of conception from the endometrial cavity. This however was unsuccessful and patient retained products. Decision was made to proceed to dilation suction curettage. This was was performed. Please see separate operative report for details. After the recovery from a D&C patient is discharged to home. Assessment: 1. Retained products of conception status post D&C 2. 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 The patient has acclimated to this well and I feel does not need transfusion at this time. Plan: 1. Ferrous sulfate 325 mg by mouth 3 times a day. 2. Stool softeners when necessary if constipation occurs 3. Patient follow up with Dr. Ogden in 2-4 weeks Diagnosis: Stroke: No - Discharge Data Discharge Date: 09/06/19 Discharge Disposition: Home, Self-Care 01 Condition: Good - Referral to Home Health Primary Care Physician: Stephenie Ogden MD - Patient Summary/Data Operative Procedure(s) Performed: Dilation and suction curettage - Patient Instructions Diet: Regular Diet as Tolerated (High fiber diet) Activity: As Tolerated (No intercourse until bleeding resolves) Driving: Do Not Drive (2 days) Showering/Bathing: May Shower (May take a bath) Notify Provider of: Fever, Increased Pain, Swelling and Redness, Drainage ( Please call for any significant uterine bleeding.), Nausea and/or Vomiting Other/Special Instructions: follow up with Dr Ogden in 2 weeks. - Discharge Plan *PRESCRIPTION DRUG MONITORING PROGRAM REVIEWED*: Not Applicable *COPY OF PRESCRIPTION DRUG MONITORING REPORT IN PATIENT FORREST: Not Applicable Prescriptions/Med Rec: Ferrous Sulfate 325 mg PO TIDMEALS #100 tab Home Medications: Home Meds Ferrous Sulfate 325 mg PO TIDMEALS #100 tab 09/04/19 [Rx] Ibuprofen [Motrin] 600 mg PO Q4HR PRN tablet 09/04/19 [Rx] Patient Handouts: Dilation and Curettage or Vacuum Curettage, Care After Referrals: Stephenie Ogden MD [Primary Care Provider] - (Return to clinic2-4 weeksDr. Ogden) - Discharge Summary/Plan Comment DC Time >30 min.: No Discharge Summary/Plan Comment: Discharge instructions: 1. Discharge home 2. Diet, activity and follow-up discussed with patient. Reg diet with increased calories and calcium. 3. Precautions given concern increased pain, bleeding, temperature, signs/ symptoms of DVT/PE. 4. Medications per home medication was printed, discussed with and given to the patient. 5. Return to clinic-Dr. Ogden at [facility] in 2-4 weeks. Diagnosis: Retained products of conception-status post D&C. Condition: Good - Patient Data Vitals - Most Recent: Last Vital Signs Temp 37.3 C 09/04/19 12:37 Pulse 59 L 09/04/19 12:31 Resp 16 09/04/19 12:37 BP 94/45 L 09/04/19 12:31 Pulse Ox 98 09/04/19 12:31 Weight - Most Recent: 58.967 kg Med Orders - Current: Current Medications Discontinued Medications Dexamethasone (Dexamethasone) Confirm Administered Dose 20 mg .ROUTE .STK-MED ONE Stop: 09/04/19 08:56 Diphenhydramine HCl (Benadryl) 25 mg IVPUSH Q6H PRN PRN Reason: pruritis Ephedrine Sulfate (Ephedrine In Ns) Confirm Administered Dose 25 mg .ROUTE .STK- MED ONE Stop: 09/04/19 09:02 Ephedrine Sulfate (Ephedrine Sulfate) 5 mg IVPUSH ASDIRECTED PRN PRN Reason: Hypotension Estrogens Conjugated (Premarin) 1.25 mg PO ONETIME ONE Stop: 09/04/19 00:03 Last Admin: 09/04/19 00:10 Dose: Not Given Fentanyl (Sublimaze) Confirm Administered Dose 100 mcg .ROUTE .STK-MED ONE Stop: 09/04/19 08:57 Fentanyl (Sublimaze) 50 mcg IVPUSH Q5M PRN PRN Reason: Pain Glycopyrrolate () Confirm Administered Dose 1 mg .ROUTE .STK-MED ONE Stop: 09/04/19 09:26 Hydromorphone HCl (Dilaudid) 0.5 mg IVPUSH Q15M PRN PRN Reason: Pain (severe 7-10) Sodium Chloride (Normal Saline) 1,000 mls @ 125 mls/hr IV ASDIRECTED [facility] Last Admin: 09/04/19 04:28 Dose: 125 mls/hr Lactated Ringer's (Ringers, Lactated) 1,000 mls @ 999 mls/hr IV .BOLUS ONE Stop: 09/04/19 09:27 Last Admin: 09/04/19 08:33 Dose: 999 mls/hr Lidocaine HCl (Xylocaine-Mpf 1%) Confirm Administered Dose 6 mls @ as directed .ROUTE .STK-MED ONE Stop: 09/04/19 08:56 Lactated Ringer's (Ringers, Lactated) Confirm Administered Dose 1,000 mls @ as directed .ROUTE .STK-MED ONE Stop: 09/04/19 08:56 Phenylephrine HCl 1 mg/ Sodium (Chloride) 10.1 mls @ 1 mls/sec IV TITRATE NATALEE; Protocol Ibuprofen (Motrin) 600 mg PO ONETIME ONE Stop: 09/04/19 02:30 Last Admin: 09/04/19 02:40 Dose: 600 mg Ibuprofen (Motrin) 600 mg PO Q4HR PRN PRN Reason: Pain Ketorolac Tromethamine (Toradol) Confirm Administered Dose 30 mg .ROUTE .STK- MED ONE Stop: 09/04/19 08:56 Methylergonovine Maleate (Methergine) Confirm Administered Dose 0.2 mg .ROUTE .STK-MED ONE Stop: 09/04/19 09:33 Last Admin: 09/04/19 09:34 Dose: 0.2 mg Midazolam HCl (Versed 1 Mg/Ml) Confirm Administered Dose 2 mg .ROUTE .STK-MED ONE Stop: 09/04/19 08:57 Misoprostol (Cytotec) 400 mcg PO ONETIME ONE Stop: 09/04/19 02:30 Last Admin: 09/04/19 02:39 Dose: 400 mcg Misoprostol (Cytotec) 400 mcg PO BID NATALEE Ondansetron HCl (Zofran) Confirm Administered Dose 4 mg .ROUTE .STK-MED ONE Stop: 09/04/19 08:56 Ondansetron HCl (Zofran) 4 mg IVPUSH ONETIME PRN PRN Reason: Nausea/Vomiting Ondansetron HCl (Zofran) 4 mg IVPUSH Q4H PRN PRN Reason: Nausea Phenylephrine HCl (Phenylephrine In Ns 100 Mcg/Ml) Confirm Administered Dose 1 mg .ROUTE .STK-MED ONE Stop: 09/04/19 09:02 Propofol (Diprivan 20 Ml) Confirm Administered Dose 200 mg .ROUTE .STK-MED ONE Stop: 09/04/19 08:57 Sodium Chloride (Saline Flush) 10 ml FLUSH ASDIRECTED PRN PRN Reason: Keep Vein Open
== END 2019-09-04 13:30 | disposition home or self-care (01) ==
LOC: JD.ED 22:03 → JD.OB 09-04 02:43
PROVIDERS: ADMIT Obstetrics & Gynecology; ATTEND Obstetrics & Gynecology
DX: O03.4 Incomplete spontaneous abortion without complication (principal); D50.0 Iron deficiency anemia secondary to blood loss (chronic); F17.210 Nicotine dependence, cigarettes, uncomplicated
CPT/HCPCS: 01965; 36415; 76830; 76830-26; 76856; 76856-26; 80053; 85025; 86850; 86900; 86901; 99283; 99285-25; A9270-GY; J1100; J1885; J2001; J2210; J2250; J2370; J2405; J2704; J3010; J7040; J7050; J7120

== ENCOUNTER 2020-10-11 18:40 | Emergency (ER) | payer SELFPAY ==
[2020-10-11 18:53] VITALS: BP 137/76; PULSE 94
--- NOTE | 2020-10-11 19:20 | EDM.PDOC ---
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 This started earlier today. After work around 5:00 this afternoon she said it got heavier. Reminds her of her miscarriage a little over a year ago but the bleeding is not that bad. And she is not cramping that bad. Patient is a 4 para 3 with 1 miscarriage. If the patient is now she is not aware of it but she is not using anything for control. Shortly before 5 patient developed some spotting. She went home took a shower and had gushes of blood she is having a hard time quantifying this as it was in the shower she is not aware of any clots. She is not had any fevers or chills no significant cramping. Ultimately patient had a miscarriage in July of last year this was followed up with a D&C in August. Her blood type type A positive. Her antibody screen was negative at that point. 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 - Infectious Disease History Infectious Disease History: Reports: Chicken Pox Social & Family History - Family History Family Medical History: No Pertinent Family History - Tobacco Use Tobacco Use Status *Q: Current Every Day Tobacco User Years of Tobacco use: 16 Packs/Tins Daily: 0.5 - Caffeine Use Caffeine Use: Reports: Coffee, Soda - Recreational Drug Use Recreational Drug Use: Yes Recreational Drug Type: Reports: Marijuana/Hashish ED ROS GENERAL - Review of Systems Review Of Systems: See Below Constitutional: Reports: No Symptoms Respiratory: Reports: No Symptoms Cardiovascular: Reports: No Symptoms GI/Abdominal: Reports: Other (Mild discomfort related to her elbow cramping). Denies: Constipation, Diarrhea, Nausea, Vomiting : Reports: Other (She has some spotting and mild cramping denies burning or frequency with urination) Musculoskeletal: Reports: No Symptoms Skin: Reports: No Symptoms Neurological: Reports: No Symptoms, Confusion, Dizziness Psychiatric: Reports: No Symptoms ED EXAM - Physical Exam Exam: See Below Exam Limited By: No Limitations General Appearance: Alert, No Apparent Distress Head: Atraumatic, Normocephalic Neck: Normal Inspection, Supple, Non-Tender, Full Range of Motion Respiratory/Chest: No Respiratory Distress, Lungs Clear, Normal Breath Sounds Cardiovascular: Regular Rate, Rhythm, No Edema, No Murmur GI/Abdominal Exam: Normal Bowel Sounds, Soft, Non-Tender, Other (No uterine enlargement the area of the uterus does not palpate tender remaining abdominal exam unremarkable no rigidity rebound or guarding appreciated) (Female) Exam: Normal External Exam, Tissue Present in Cervix/Vagina (Scant amount of tissue was noticed mostly clot. Only a small amount.) Back Exam: Normal Inspection. No: CVA Tenderness (L), CVA Tenderness (R) Extremities: Normal Inspection, No Pedal Edema Neurological: Alert, Oriented, Normal Cognition, Other (Normal reflexes) Course - Vital Signs Last Recorded V/S: Last Vital Signs Temp 36.2 C 10/11/20 18:50 Pulse 94 10/11/20 18:50 Resp 18 10/11/20 18:50 BP 137/76 10/11/20 18:50 Pulse Ox - Orders/Labs/Meds Labs: Laboratory Tests 10/11/20 10/11/20 10/11/20 Range/Units 19:40 19:40 20:08 WBC 6.28 (3.98-10.04) K/mm3 RBC 4.20 (3.98-5.22) M/mm3 Hgb 11.8 D (11.2-15.7) gm/dl Hct 36.5 (34.1-44.9) % MCV 86.9 D (79.4-94.8) fl MCH 28.1 (25.6-32.2) pg MCHC 32.3 (32.2-35.5) g/dl RDW Std Deviation 40.4 (36.4-46.3) fL Plt Count 297 (182-369) K/mm3 MPV 9.3 L (9.4-12.3) fl Neut % (Auto) 61.9 (34.0-71.1) % Lymph % (Auto) 29.8 (19.3-51.7) % Coffey % (Auto) 7.2 (4.7-12.5) % Eos % (Auto) 0.6 L (0.7-5.8) Baso % (Auto) 0.3 (0.1-1.2) % Neut # (Auto) 3.89 (1.56-6.13) K/mm3 Lymph # (Auto) 1.87 (1.18-3.74) K/mm3 Coffey # (Auto) 0.45 H (0.24-0.36) K/mm3 Eos # (Auto) 0.04 (0.04-0.36) K/mm3 Baso # (Auto) 0.02 (0.01-0.08) K/mm3 HCG, Quant 2000.0 mIU/mL Urine Color Yellow (Yellow) Urine Appearance Clear (Clear) Urine pH 5.5 (5.0-8.0) Ur Specific [place] > or = 1.030 (1.005-1.030) Urine Protein 2+ H (Negative) Urine Glucose (UA) Negative (Negative) Urine Ketones Negative (Negative) Urine Occult Blood 1+ H (Negative) Urine Nitrite Negative (Negative) Urine Bilirubin 1+ H (Negative) Urine Urobilinogen 0.2 (0.2-1.0) Ur Leukocyte Esterase Negative (Negative) Urine RBC 10-20 H (0-5) /hpf Urine WBC 0-5 (0-5) /hpf Ur Squamous Epith Cells 5-10 H (0-5) /hpf Urine Bacteria Few (FEW) /hpf Urine Mucus Moderate H (FEW) /hpf - Re-Assessments/Exams Free Text/Narrative Re-Assessment/Exam: 10/11/20 21:27 18 of hCG 2000 urine does not appear to have an infection developing. Unfortunately patient appears to have an incomplete miscarriage. We will have her follow-up with OB tomorrow as we are coming into the weekend. Departure - Departure Time of Disposition: 21:28 Disposition: Home, Self-Care 01 Clinical Impression: Incomplete miscarriage - Discharge Information Instructions: Miscarriage, [id number] Referrals: PCP,None [Primary Care Provider] - Stephenie Ogden MD [Physician] - Forms: ED Department Discharge, ED Return to Work/School Form Additional Instructions: Return to the emergency room with any questions problems or worsening symptoms. Return to the emergency room if saturating more than 2 pads an hour for more than 2 hours or you have any concerns that need to be addressed. Follow-up with Dr. Ogden tomorrow if possible if not follow-up Thursday. Be sure you are taking a vitamin with folic acid. Sepsis Event Note (ED) - Evaluation Sepsis Screening Result: No Definite Risk - Focused Exam Vital Signs: Vital Signs Temp Pulse Resp BP 10/11/20 18:50 36.2 C 94 18 137/76
== END 2020-10-11 21:45 | disposition home or self-care (01) ==
LOC: JD.ED 18:40
DX: O03.4 Incomplete spontaneous abortion without complication (principal); F17.210 Nicotine dependence, cigarettes, uncomplicated
CPT/HCPCS: 36415; 81001; 84702; 85025; 99283; 99284

== ENCOUNTER 2021-02-15 20:19 | Emergency (ER) | payer SELFPAY ==
[2021-02-15] MEDS ORDERED: Lidocaine 1% 10 ML MDV INJECT ONE (20:22)
[2021-02-15] MEDS ORDERED: Diphtheria,Pertussis(Acell),Tetanus Vaccine 0.5 ML Syringe IM ONE (20:22)
[2021-02-15 20:27] VITALS: BP 132/67; PULSE 82
--- NOTE | 2021-02-15 20:28 | EDM.PDOC ---
ED HPI GENERAL MEDICAL PROBLEM - General Chief Complaint: Laceration Stated Complaint: [facility] Time Seen by Provider: 02/15/21 20:21 Source of Information: Reports: Patient, RN Notes Reviewed History Limitations: Reports: No Limitations - History of Present Illness INITIAL COMMENTS - FREE TEXT/NARRATIVE: Patient is a 35-year-old female presenting to the emergency department via [facility] with complaints of a laceration to the base of her right fifth finger. States she was playing with a "camping knife" when she cut herself with it. She is unsure when her last tetanus vaccination was. 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 ED EXAM, SKIN/RASH Exam: See Below Exam Limited By: No Limitations General Appearance: Alert, WD/WN, No Apparent Distress Respiratory/Chest: No Respiratory Distress, Lungs Clear, Normal Breath Sounds, No Accessory Muscle Use, Chest Non-Tender Cardiovascular: Normal Peripheral Pulses, Regular Rate, Rhythm, No Edema, No Gallop, No JVD, No Murmur, No Rub Extremities: Other (2.5 cm horizontal laceration to the ventral aspect of the right 5th finger in the crease of the MCP joint. Small amount of bleeding. Full strength to flexion, extension, and abduction. Full sensation distal to the injury.) Neurological: Alert, Oriented, CN II-XII Intact, Normal Cognition, Normal Gait, Normal Reflexes, No Motor/Sensory Deficits Psychiatric: Normal Affect, Normal Mood ED SKIN PROCEDURES - Laceration/Wound Repair Right Lower Ventral Digit - 5th (Baby) Appearance: Subcutaneous Distal NVT: Neuro & Vascular Intact, No Tendon Injury Anesthetic Type: Local Local Anesthesia - Lidocaine (Xylocaine): 1% Plain Local Anesthetic Volume: 2cc Skin Prep: Chlorhexidine (Hibiciens), Providone-Iodine (Betadine), Saline, Sterile Drape Exploration/Debridement/Repair: Wound Explored, No Foreign Material Found Closed with: Sutures Lac/Wound length In cm: 2.5 Suture Size: 4-0 # of Sutures: 5 Suture Type: Nylon Sterile Dressing Applied: Nurse Tetanus Status Addressed: Yes Complications: No Course - Vital Signs Last Recorded V/S: Last Vital Signs Temp 97 F 02/15/21 20:23 Pulse 82 02/15/21 20:23 Resp 18 02/15/21 20:23 BP 132/67 02/15/21 20:23 Pulse Ox 100 02/15/21 20:23 - Orders/Labs/Meds Orders: Active Orders 24 hr Category Date Time Status Vaccines to be Administered [RC] PER UNIT ROUTINE Care 02/15/21 20:22 Active Meds: Medications Discontinued Medications Generic Name Dose Route Start Last Admin Trade Name Freq PRN Reason Stop Dose Admin Diphtheria/Tetanus/Acell Pertussis 0.5 ml 02/15/21 20:22 02/15/21 20:31 Diphtheria,Pertussis(Acell),Tetanus Vaccine 0.5 Ml Syringe IM 02/15/21 20:23 0.5 ml .ONCE ONE Administration Lidocaine HCl 10 ml 02/15/21 20:22 02/15/21 20:31 Lidocaine 1% 10 Ml Mdv INJECT 02/15/21 20:23 10 ml ONETIME ONE Administration Departure - Departure Time of Disposition: 21:17 Disposition: Home, Self-Care 01 Condition: Good Clinical Impression: Laceration - Discharge Information *PRESCRIPTION DRUG MONITORING PROGRAM REVIEWED*: No *COPY OF PRESCRIPTION DRUG MONITORING REPORT IN PATIENT FORREST: No Instructions: Laceration Care, Adult Referrals: PCP,Unknown [Primary Care Provider] - Forms: ED Department Discharge Additional Instructions: You were seen in the emergency department today for a laceration to your right little finger. The wound was cleansed and closed with 5 sutures. These should stay intact for 7-10 days. After that time they may be removed in the clinic by a nurse. Keep the wound clean and dry. Wash with normal soap and water twice daily. Do not submerge the wound in water. Watch for signs of infection including increased redness, swelling, or purulent drainage. If these should occur, you should be seen either in the clinic or in the emergency department as antibiotic treatment may be needed. Return to the ER as needed. Sepsis Event Note (ED) - Focused Exam Vital Signs: Vital Signs Temp Pulse Resp BP Pulse Ox 02/15/21 20:23 97 F 82 18 132/67 100 - My Orders Last 24 Hours: My Active Orders 02/15/21 20:22 Vaccines to be Administered [RC] PER UNIT ROUTINE - Assessment/Plan Last 24 Hours: My Active Orders 02/15/21 20:22 Vaccines to be Administered [RC] PER UNIT ROUTINE
== END 2021-02-15 21:28 | disposition home or self-care (01) ==
LOC: JD.ED 20:19
DX: S61.216A Laceration without foreign body of right little finger without damage to nail, initial encounter (principal); Z23 Encounter for immunization; W26.0XXA Contact with knife, initial encounter
CPT/HCPCS: 12001; 90471; 90715; 99282; 99283-25

== ENCOUNTER 2022-04-14 02:47 | Emergency (ER) | payer SELFPAY ==
[2022-04-14 03:08] VITALS: BP 135/79; PULSE 91
== END 2022-04-14 05:10 | disposition home or self-care (01) ==
LOC: JD.ED 02:47
DX: S83.002A Unspecified subluxation of left patella, initial encounter (principal); W18.40XA Slipping, tripping and stumbling without falling, unspecified, initial encounter
CPT/HCPCS: 73562-26-LT; 73562-LT; 99283; 99283-25

== ENCOUNTER 2022-09-25 16:45 | Emergency (ER) | payer SELFPAY ==
[2022-09-25 18:55] VITALS: BP 133/75; PULSE 89
== END 2022-09-25 18:54 | disposition home or self-care (01) ==
LOC: JD.ED 16:45
DX: T16.1XXA Foreign body in right ear, initial encounter (principal); F17.210 Nicotine dependence, cigarettes, uncomplicated
CPT/HCPCS: 69200; 99282